=== PATIENT | male | born 1935 | race Caucasian/White ===

== ENCOUNTER 2020-09-09 14:57 | Emergency (ER) | payer MEDICARE, SELFPAY ==
--- NOTE | ~2020-09-09 | XR_ITS ---
EXAMINATION: XR CHEST CLINICAL INFORMATION: Weakness COMPARISON: None TECHNIQUE: 2 views of the chest were obtained. FINDINGS: The cardiac and mediastinal contours are normal. There is significant right apical pleural thickening and calcification. There are irregular calcifications seen in the left lateral upper and mid lung. Appearance is suggestive of pleural calcification. There is volume loss to both upper lobes with superior retraction of the pulmonary [place]. There is a shift of the trachea to the right. There is question of central bronchial wall thickening. The lungs appear well inflated with flattening of the hemidiaphragms suggestive of COPD. There is no pleural effusion or pneumothorax. There are old left rib fractures. Bony structures are otherwise unremarkable. XR/XR chest 2V IMPRESSION: Significant asymmetric right pleural thickening and calcification. Apical mass cannot be excluded. Bilateral upper lobe volume loss. Multiple left midlung calcifications suggestive of pleural calcifications. Possible central bronchial wall thickening. Comparison with old outside chest x-ray is recommended. If no old exams are available for comparison or there is a change in x-ray findings, chest scan should be considered.
--- NOTE | ~2020-09-09 | CT_ITS ---
EXAMINATION: CT CHEST AND CT HEAD WITHOUT CONTRAST. CLINICAL INFORMATION: Abnormal chest x-ray. Altered mental status. COMPARISON: Chest x-ray obtained earlier today at 3:42 PM. TECHNIQUE: 5 mm thin axial and reformatted 2 mm thin sagittal and coronal images of brain were obtained. Subsequently 5 mm thin axial and reformatted 3 mm thin sagittal coronal images of chest were obtained. DLP 810 mGy/cm FINDINGS: Brain: No acute intra-axial, extra-axial bleed, masses or midline shift. There is no acute infarction in evolution. The lom[place] to white matter differentiation is maintained. The lateral ventricles are symmetrical in size and configuration with mild enlargement. There is mild periventricular hypodensity without mass effect. Bone windows reveal no calvarial abnormality. There is no scalp soft tissue abnormality. Bilateral paranasal sinuses and mastoid air cells are well-aerated. CHEST: Lungs are hyperinflated without acute consolidation. There is bilateral apical pleural thickening with a dense masslike right apical pleural anterior calcification and a soft tissue mass posteriorly measuring 36 Hounsfield units. There is no underlying bony erosive changes or lytic lesion involving the adjacent first 4 or 5 ribs. The soft tissue mass measures approximately 4.1 x 2.5 cm on sagittal image 74/18. There is minimal left apical pleural thickening. There are prominent reticular interstitial changes in both lung bases likely chronic scarring. There is diaphragmatic pleural thickening right lower lobe measuring 1.5 x 0.5 cm axial image 56/15.There is dense anterior left pleural calcifications correspond to abnormalities in the left midlung on chest x-ray. There is no pleural effusion or pneumothorax. There is enlarged trachea consistent with emphysema and COPD. There is dependent debris seen within the posterior wall of trachea image 13/15 otherwise the tracheal and bronchial airway is widely patent. No abnormal size mediastinal or hilar lymph nodes or mass seen. The thyroid lobes are symmetrical and normal. The heart size and the great vessels are normal. There are coronary artery, mitral valve calcifications. No pericardial effusion seen. The axilla and chest wall is grossly unremarkable. Imaging through the upper abdomen reveals multiple small calcifications in the liver. Bilateral adrenal glands and visualized kidneys are unremarkable. Bone windows reveal no compression fracture except for mild osteopenia and heterogeneity. CT/CT head/brain wo con IMPRESSION: Diffuse emphysema with right upper lobe apical calcification soft tissue mass, suspicious. There is no underlying bony erosive changes seen on this exam. Recommend PET/CT or CT guided biopsy. Alternatively comparison with old CT or chest x-ray can be performed if available and There is chronic scarring and/or atelectatic changes in both lower lobes. There is no abnormal size mediastinal or hilar lymph nodes seen high limited on this noncontrast exam. Dense left anterior pleural calcification corresponding to the chest x-ray abnormality seen in the left midlung. No pleural effusion.
[2020-09-09 15:03] VITALS: BP 128/61; BP 98/58; PULSE 91; PULSE 95; RESP 18; TEMP 36.7; O2SAT 91; BMI 13.6
--- NOTE | 2020-09-09 15:28 | ECG_ITS ---
Test Reason : DYSPNEA Blood Pressure : / mmHG Vent. Rate : 092 BPM Atrial Rate : 100 BPM P-R Int : 000 ms QRS Dur : 074 ms QT Int : 328 ms P-R-T Axes : 000 143 013 degrees QTc Int : 405 ms Suspect limb lead reversal, interpretation assumes no reversal Atrial fibrillation with premature ventricular or aberrantly conducted complexes Anterolateral infarct , age undetermined Abnormal ECG No previous ECGs available Referred By: Angella Martin Electronically Signed By:DEZ SCOTT MD
--- NOTE | 2020-09-09 15:34 | ED.SOB ---
HPI - SOB/Dyspnea General Chief Complaint: Dyspnea Stated Complaint: weakness, sob Time Seen by Provider: 09/09/20 15:01 Source: patient, family and EMS Mode of arrival: EMS Limitations: no limitations History of Present Illness HPI Narrative: 85-year-old male with a past medical history of AFib on Coumadin, COPD on chronic 5 mg of prednisone followed by Dr. Rueda, obstructive sleep apnea on CPAP, coronary artery disease with old [place], GERD, severe malnutrition here with complaints of generalized weakness and shortness of breath. Per family the patient was admitted to [facility] on 08/21/2020 for shortness of breath, pancreatic mass question of neoplasm, hyponatremia and acute kidney injury. Discharge on 08/24 to [facility] for short-term rehab. This was after the family and patient decided not to pursue further workup for the pancreatic mass. Patient was discharged home yesterday from the alf. Her daughter the patient lives in a two-story home and has his bedroom and bathroom upstairs. He does have 4 steps to get upstairs and she tells me he has been weak and short of breath and unable to move 2-3 steps without nearly falling. She is concerned that he lives alone and he is not safe to be there. Today she tells me that she had a nurse come into the home and he was noted to be very short of breath with any movement, generally weak and his room air saturation was 89%. Per EMS RA 89% on arrival. She also feels like he is more confused from his baseline. MD elicited complaint: shortness of breath and cough Related Data Allergies Allergy/AdvReac Type Severity Reaction Status Date / Time erythromycin base Allergy Unknown unknown Verified 09/09/20 15:28 levofloxacin [From Levaquin] Allergy Unknown unknown Verified 09/09/20 15:28 Review of Systems Review of Systems: Yes all other systems are reviewed and are negative Constitutional: Constitutional: Reports no additional constitutional complaints, Denies body ache(s), Denies chills, Denies fever(s), Denies headache(s) and Reports weakness Eyes: Eyes: Reports no additional eye complaints and Denies change in vision ENT: Reports system reviewed and no additional complaints, except as documented, Denies dizziness, Denies headache(s), Denies nasal congestion, Denies nasal discharge and Denies neck pain Cardiovascular: Cardiovascular: Reports no additional cardiovascular complaints, Denies chest pain, Denies leg edema and Reports dyspnea Respiratory: Respiratory: Reports no additional respiratory complaints, Reports cough and Reports dyspnea Gastrointestinal: Gastrointestinal: Reports no additional gastrointestinal complaints, Denies abdominal pain, Denies diarrhea, Denies nausea and Denies vomiting Genitourinary: Genitourinary: Denies urinary incontinence Musculoskeletal: Musculoskeletal: Reports no additional musculoskeletal complaints, Denies back pain, Denies arthralgias, Denies joint swelling, Denies neck pain, Denies numbness and Denies tingling Integumentary/Breasts: Skin/Breast: Reports system reviewed and no additional complaints, except as docu and Denies rash Neurologic: Reports system reviewed and no additional complaints, except as documented, Denies Abnormal speech present, Denies dizziness, Denies headache(s), Denies numbness, Denies tingling and Reports weakness PMFSH Past Medical History Medical History Afib COPD (chronic obstructive pulmonary disease) Social History Social History Alcohol intake: never Patient Tobacco Use Status: Former Tobacco user Smoked in Last 30 Days: No Use of substances other than those prescribed or required for medical reasons: No Advance Directives: No Advance Directives Information Provided: Yes Physical Exam Vital Signs: Vital Signs: Last Vital Signs Temp 98.1 F 09/09/20 15:03 Pulse 104 H 09/09/20 19:56 Resp 18 09/09/20 19:56 BP 135/61 09/09/20 19:56 Pulse Ox 100 09/09/20 19:56 Body Mass Index 13.6 Const: Other: Very thin appearing General: cooperative and awake Orientation/consciousness: oriented to person and oriented to place Limitations: no limitations HENMT: Head: Yes normal to inspection Ears: hearing grossly normal bilaterally General nose exam: Normal external nose present Face and sinus: Yes normal facial exam Mouth: Normal oral and palatal mucosa present Throat: Yes posterior oropharynx normal, Yes tonsils normal and Yes uvula midline Eyes: General: appearance normal, both eyes and all related structures Pupils: Equal, round and reactive pupils present Neck: Neck: Yes normal visual inspection Chest: Chest palpation & inspection: normal inspection of the chest Resp: Other: Mild expiratory wheezing. Coarse breath sounds in the upper airways Effort & Inspection: normal respiratory effort Cardio: Rate: regular rate Rhythm: regular rhythm Peripheral pulses: Peripheral pulses 2+ throughout GI: Inspection: Yes normal to inspection Palpation (GI): Soft to palpation and nontender Auscultation: normal bowel sounds Back/Spine/Pelvis: Thoracic/Lumbar Spine: thoracic and lumbar spine normal to inspection Skin: General skin exam: no rashes or lesions noted Neuro: General: oriented to person, oriented to place, tone normal, moves all extremities, normal sensation to monofilament and Unable to assess gait Cranial nerves: Yes Equal, round and reactive pupils present, Yes Normal facial strength present and Yes Midline tongue present Cognition (Neuro): normal cognition Speech: No Abnormal speech present Gait exam (Neuro): Unable to assess gait Motor exam (neuro): 5/5 motor strength present throughout Extrem: Other: DTI to bilateral heels. Tender to palpate. No warmth, redness General: Yes normal to inspection, Yes no pedal edema and Yes no calf tenderness Course Course Course Narrative: 85-year-old male here with complaints of generalized weakness, shortness of breath and concern for increasing confusion from baseline from daughter. In the setting of a recent admit to [facility] and transferred to short-term rehab. Discharged yesterday. Daughter is concerned the patient is too weak and short of breath with any movement and is unsafe for him to be home. Of note, recent diagnosis of pancreatic mass. They deferred further evaluation with biopsy and any treatment. Patient very thin-appearing. Room-air saturation 89%. Diminished breath sounds with some coarse upper airway. Will need labs, EKG, chest x-ray, DuoNeb, solumedrol. For concern for confusion although patient is A&Ox2 with no overt neuro deficit will also check Ct head, UA. 1644-chest x-ray shows significant asymmetric right pleural thickening and calcification. Apical mass cannot be excluded. No comparison available. Recommend CT chest. Added on. 1819-labs show mild hyponatremia. Likely secondary dehydration. Will give 500 fluid bolus and reassessed. Patient has some mild hypercarbia which is likely secondary COPD. Imaging pending. 2029-head CT shows no acute finding. CT chest shows diffuse emphysema with a right upper lobe apical calcifications soft tissue mass. There is no underlying bony erosive changes. Recommend follow-up PET/CT or CT guided biopsy. Chronic scarring noted. No abnormal mediastinal or hilar lymph nodes seen. Reviewed findings with family. Given copy of report. They where they need to follow up with further imaging. They have deferred biopsy of pancreatic lesion and further possible treatment with chemo/radiation and we discussed they likely will not due any invasive workup or treatment. Patient ambulated approximately 10-15 steps and had a oxygen saturation of 100%. He was mildly tachypneic with a rate of 22-24. His heart rate did increase to 120 with exertion. However, his orthostatics were not positive. Plan for repeat BMP and troponin. If hyponatremia is improved then will involve physical therapy and case management for placement. If persistent hyponatremia patient will need admission. Family is aware. 2100-Sign out to [employer] pending plan above MDM - SOB/Dyspnea MDM Narrative Medical decision making narrative: uti, ICH vs lesion Differential Diagnosis Differential diagnosis: Likely acute exacerbation of chronic obstructive airways disease, congestive heart failure and pneumonia Medical Records Attestation: I reviewed the patient's medical records. Lab Data Attestation: I reviewed the patient's lab results. Result diagrams: 09/09/20 16:22 09/09/20 16:22 Labs: Lab Results 09/09/20 09/09/20 09/09/20 Range/Units 16:22 16:22 16:22 WBC 7.2 (4.8-10.8) X10*3/uL RBC 3.44 L (4.60-5.80) X10*6/uL Hgb 10.9 L (14.0-18.0) g/dl Hct 33.2 L (42-52) % MCV 96.5 (80-98) fL MCH 31.7 (27.0-33.0) pg MCHC 32.8 (31.0-36.0) g/dl RDW 13.2 (11.0-16.0) % Plt Count 326 (160-400) X10*3/uL MPV 8.3 L (9.4-12.4) fL Immature Gran % (Auto) 0.3 (0.0-0.4) % Neut % (Auto) 83.3 H (45-73) % Lymph % (Auto) 4.3 L (20-40) % Terrell % (Auto) 10.2 (2-11) % Eos % (Auto) 1.5 (0-4) % Baso % (Auto) 0.4 (0-2) % Lymph # (Auto) 0.3 L (1.2-4.9) X10*3/uL Terrell # (Auto) 0.7 (0.1-1.2) X10*3/uL Eos # (Auto) 0.1 (0.0-0.4) X10*3/uL Baso # (Auto) 0.0 (0.0-0.2) X10*3/uL Abs Immat Gran (auto) 0.02 (0.00-0.03) X10*3/uL Absolute Neuts (auto) 6.0 (2.0-8.3) X10*3/uL Absolute Nucleated RBC 0.000 (0.0-0.012) X10*3/uL Nucleated RBC % (auto) 0.0 (0.0-0.2) /100WBC Smear Tech's Comments VERIFIED PT 25.3 H (10.8-13.0) SEC INR 2.1 H (0.9-1.1) Sodium 129 L (135-145) mmol/L Potassium 4.3 (3.3-5.1) mmol/L Chloride 88 L (96-108) mmol/L Carbon Dioxide 36 H (22-29) mmol/L Anion Gap 9 L (12-20) BUN 6 L (9-16) mg/dL Creatinine 0.63 (0.5-1.4) mg/dL Estim Creat Clear Calc 50.9 Estimated GFR > 60 Random Glucose 87 (60-115) mg/dL Lactic Acid (0.5-2.0) mmol/L Calcium 9.0 (8.4-10.2) mg/dL Magnesium 2.2 (1.6-2.6) mg/dL Total Bilirubin 0.7 (0.0-1.0) mg/dL Direct Bilirubin 0.2 (0.0-0.5) mg/dL AST 18 (5-37) U/L ALT 12 (0-40) U/L Alkaline Phosphatase 66 (39-117) U/L Troponin I High Sens (<3.5-35.0) ng/L B-Natriuretic Peptide (<100) pg/mL Total Protein 5.6 L (6.5-8.0) g/dL Albumin 3.7 (3.5-5.0) g/dL Urine Color Urine Appearance Urine pH (5.0-8.0) Ur Specific [place] (1.005-1.025) Urine Protein (NEG-TRACE) MG/DL Urine Glucose (UA) (NEG) MG/DL Urine Ketones (NEG) MG/DL Urine Blood (NEG) Urine Nitrite (NEG) Ur Leukocyte Esterase (NEG) COVID-19 (JEANNE) (Negative) COVID-19 Clin Com 09/09/20 09/09/20 09/09/20 Range/Units 16:22 16:22 17:06 WBC (4.8-10.8) X10*3/uL RBC (4.60-5.80) X10*6/uL Hgb (14.0-18.0) g/dl Hct (42-52) % MCV (80-98) fL MCH (27.0-33.0) pg MCHC (31.0-36.0) g/dl RDW (11.0-16.0) % Plt Count (160-400) X10*3/uL MPV (9.4-12.4) fL Immature Gran % (Auto) (0.0-0.4) % Neut % (Auto) (45-73) % Lymph % (Auto) (20-40) % Terrell % (Auto) (2-11) % Eos % (Auto) (0-4) % Baso % (Auto) (0-2) % Lymph # (Auto) (1.2-4.9) X10*3/uL [place]rell # (Auto) (0.1-1.2) X10*3/uL Eos # (Auto) (0.0-0.4) X10*3/uL Baso # (Auto) (0.0-0.2) X10*3/uL Abs Immat Gran (auto) (0.00-0.03) X10*3/uL Absolute Neuts (auto) (2.0-8.3) X10*3/uL Absolute Nucleated RBC (0.0-0.012) X10*3/uL Nucleated RBC % (auto) (0.0-0.2) /100WBC Smear Tech's Comments PT (10.8-13.0) SEC INR (0.9-1.1) Sodium (135-145) mmol/L Potassium (3.3-5.1) mmol/L Chloride (96-108) mmol/L Carbon Dioxide (22-29) mmol/L Anion Gap (12-20) BUN (9-16) mg/dL Creatinine (0.5-1.4) mg/dL Estim Creat Clear Calc Estimated GFR Random Glucose (60-115) mg/dL Lactic Acid 0.5 (0.5-2.0) mmol/L Calcium (8.4-10.2) mg/dL Magnesium (1.6-2.6) mg/dL Total Bilirubin (0.0-1.0) mg/dL Direct Bilirubin (0.0-0.5) mg/dL AST (5-37) U/L ALT (0-40) U/L Alkaline Phosphatase (39-117) U/L Troponin I High Sens 5.7 (<3.5-35.0) ng/L B-Natriuretic Peptide 89 (<100) pg/mL Total Protein (6.5-8.0) g/dL Albumin (3.5-5.0) g/dL Urine Color Urine Appearance Urine pH (5.0-8.0) Ur Specific [place] (1.005-1.025) Urine Protein (NEG-TRACE) MG/DL Urine Glucose (UA) (NEG) MG/DL Urine Ketones (NEG) MG/DL Urine Blood (NEG) Urine Nitrite (NEG) Ur Leukocyte Esterase (NEG) COVID-19 (JEANNE) Negative (Negative) COVID-19 Clin Com See Note 09/09/20 Range/Units 17:06 WBC (4.8-10.8) X10*3/uL RBC (4.60-5.80) X10*6/uL Hgb (14.0-18.0) g/dl Hct (42-52) % MCV (80-98) fL MCH (27.0-33.0) pg MCHC (31.0-36.0) g/dl RDW (11.0-16.0) % Plt Count (160-400) X10*3/uL MPV (9.4-12.4) fL Immature Gran % (Auto) (0.0-0.4) % Neut % (Auto) (45-73) % Lymph % (Auto) (20-40) % Terrell % (Auto) (2-11) % Eos % (Auto) (0-4) % Baso % (Auto) (0-2) % Lymph # (Auto) (1.2-4.9) X10*3/uL [place] # (Auto) (0.1-1.2) X10*3/uL Eos # (Auto) (0.0-0.4) X10*3/uL Baso # (Auto) (0.0-0.2) X10*3/uL Abs Immat Gran (auto) (0.00-0.03) X10*3/uL Absolute Neuts (auto) (2.0-8.3) X10*3/uL Absolute Nucleated RBC (0.0-0.012) X10*3/uL Nucleated RBC % (auto) (0.0-0.2) /100WBC Smear Tech's Comments PT (10.8-13.0) SEC INR (0.9-1.1) Sodium (135-145) mmol/L Potassium (3.3-5.1) mmol/L Chloride (96-108) mmol/L Carbon Dioxide (22-29) mmol/L Anion Gap (12-20) BUN (9-16) mg/dL Creatinine (0.5-1.4) mg/dL Estim Creat Clear Calc Estimated GFR Random Glucose (60-115) mg/dL Lactic Acid (0.5-2.0) mmol/L Calcium (8.4-10.2) mg/dL Magnesium (1.6-2.6) mg/dL Total Bilirubin (0.0-1.0) mg/dL Direct Bilirubin (0.0-0.5) mg/dL AST (5-37) U/L ALT (0-40) U/L Alkaline Phosphatase (39-117) U/L Troponin I High Sens (<3.5-35.0) ng/L B-Natriuretic Peptide (<100) pg/mL Total Protein (6.5-8.0) g/dL Albumin (3.5-5.0) g/dL Urine Color YELLOW Urine Appearance CLEAR Urine pH 6.0 (5.0-8.0) Ur Specific [place] 1.015 (1.005-1.025) Urine Protein NEG (NEG-TRACE) MG/DL Urine Glucose (UA) NEG (NEG) MG/DL Urine Ketones NEG (NEG) MG/DL Urine Blood NEG (NEG) Urine Nitrite NEG (NEG) Ur Leukocyte Esterase NEG (NEG) COVID-19 (JEANNE) (Negative) COVID-19 Clin Com Imaging Data Chest x-ray: Attestation: I personally reviewed and interpreted this imaging study as follows: Radiologist's impression: IMPRESSION: Significant asymmetric right pleural thickening and calcification. Apical mass cannot be excluded. Bilateral upper lobe volume loss. Multiple left midlung calcifications suggestive of pleural calcifications. Possible central bronchial wall thickening. Comparison with old outside chest x-ray is recommended. If no old exams are available for comparison or there is a change in x-ray findings, chest scan should be considered. ECG Data Attestation: I personally reviewed and interpreted this ECG as follows: ECG interpretation date: 09/09/20 ECG interpretation time: 16:38 Interpretation: afib with rate 92, normal qrs, normal qtc Discharge Plan Discharge Clinical Impression: Weakness
[2020-09-09] MEDS: Albuterol/Iprat 2.5/0.5MG 3 ML AMPUL.NEB INHALE (16:06)
[2020-09-09 16:08] VITALS: PULSE 95; O2SAT 91
[2020-09-09] MEDS: methylPREDNISolone Sod Succ 125 MG/2 ML VIAL IVPUSH (16:30)
[2020-09-09 16:31] LABS: Basophils Percent Auto 0.4 % (0-2); Eosinophils Absolute Auto 0.1 X10*3/uL (0.0-0.4); Eosinophils Percent Auto 1.5 % (0-4); Hematocrit 33.2 % (42-52); Hemoglobin 10.9 g/dl (14.0-18.0); Imm Gran Abs Auto 0.02 X10*3/uL (0.00-0.03); Imm Gran Pct Auto 0.3 % (0.0-0.4); Lymphocytes Absolute Auto 0.3 X10*3/uL (1.2-4.9); Lymphocytes Percent Auto 4.3 % (20-40); MANUAL DIFF FLAG SCAN; Mean Corpuscular HGB Conc 32.8 g/dl (31.0-36.0); Mean Corpuscular Hemoglobin 31.7 pg (27.0-33.0); Mean Corpuscular Volume 96.5 fL (80-98); Mean Platelet Volume 8.3 fL (9.4-12.4); Monocytes Absolute Auto 0.7 X10*3/uL (0.1-1.2); Monocytes Percent Auto 10.2 % (2-11); Neutrophils Percent Auto 83.3 % (45-73); Platelet Count 326 X10*3/uL (160-400); Red Blood Count 3.44 X10*6/uL (4.60-5.80); Red Cell Distribution Width 13.2 % (11.0-16.0); SCAN SMEAR FLAG 1; White Blood Count 7.2 X10*3/uL (4.8-10.8)
[2020-09-09 16:44] LABS: INTERNATIONAL NORM RATIO 2.1 (0.9-1.1); Prothrombin Time 25.3 SEC (10.8-13.0)
[2020-09-09 16:57] LABS: Lactic Acid 0.5 mmol/L (0.5-2.0)
[2020-09-09 17:00] LABS: SLIDE REVIEW VERIFIED
[2020-09-09 17:03] LABS: B Type Natriuretic Peptide 89 pg/mL (<100); Troponin-I High Sensitivity 5.7 ng/L (<3.5-35.0)
[2020-09-09 17:31] LABS: Alanine Aminotransferase 12 U/L (0-40); Albumin Level 3.7 g/dL (3.5-5.0); Alkaline Phosphatase 66 U/L (39-117); Anion Gap 9 (12-20); Aspartate Amino Transferase 18 U/L (5-37); Bilirubin Direct 0.2 mg/dL (0.0-0.5); Bilirubin Total 0.7 mg/dL (0.0-1.0); Blood Urea Nitrogen 6 mg/dL (9-16); Carbon Dioxide 36 mmol/L (22-29); Chloride 88 mmol/L (96-108); Creatinine Clr Calc Pharmacy 50.9; Estimated Glomerular Filt Rate > 60; Glucose Random 87 mg/dL (60-115); Magnesium 2.2 mg/dL (1.6-2.6); Potassium 4.3 mmol/L (3.3-5.1); Sodium 129 mmol/L (135-145); Total Protein 5.6 g/dL (6.5-8.0)
[2020-09-09 17:33] LABS: Glucose Urine UA NEG (NEG); Leukocyte Esterase Urine NEG (NEG); Nitrite Urine NEG (NEG); Specific Gravity - Urine 1.015 (1.005-1.025); Urine Blood NEG (NEG); Urine Ketones NEG (NEG); Urine Protein NEG (NEG-TRACE)
[2020-09-09 17:35] LABS: Appearance Urine CLEAR; Color Urine YELLOW
[2020-09-09 17:57] LABS: COVID-19 Test Negative (Negative)
[2020-09-09 19:55] VITALS: BP 130/64; PULSE 95
[2020-09-09 19:56] VITALS: BP 124/53; BP 135/61; PULSE 101; PULSE 104; RESP 18; O2SAT 100
[2020-09-09 21:32] LABS: Anion Gap 12 (12-20); Blood Urea Nitrogen 8 mg/dL (9-16); Calcium 8.8 mg/dL (8.4-10.2); Carbon Dioxide 33 mmol/L (22-29); Chloride 90 mmol/L (96-108); Creatinine Clr Calc Pharmacy 45.1; Estimated Glomerular Filt Rate > 60; Glucose Random 296 mg/dL (60-115); Potassium 4.8 mmol/L (3.3-5.1); Sodium 130 mmol/L (135-145)
[2020-09-09 21:37] LABS: Troponin-I High Sensitivity 4.4 ng/L (<3.5-35.0)
[2020-09-09 22:00] VITALS: BP 105/50; PULSE 98; RESP 20
--- NOTE | 2020-09-09 22:52 | MHC.CM.ED ---
CM met with pt at request of Angella BARKER and pt daughter/HCP Liudmila Boston-[phone] cell. Pt was at [facility] for STR and was d/c to home. D/C paperwork from SNF stated that pt was independent. Daughter states she appealed her father's discharge and it was denied twice. Liudmila tells me her father is very weak, has pancreatic cancer, COPD, FTT,a-fib CAD and GERD. She states he is very forgetful and cannot remember how to complete tasks he has been doing for years, i.e. using his nebulizer machine. She tells me he forgets to eat. Liudmila had an RN from [facility] come in to evaluate her father and stated that he nearly fell and the nurse did not feel he was safe at home. STEPH came in to evaluate her father and felt he needed to come to the ED and called the ambulance to transport him to [facility]. Pt is alert and orientated x3, but easily forgets our conversation and needed to be reminded several times what the plan of care was. Pt and family have decided to forego any cancer treatment. Pt lives alone and must navigate 4 stairs to go to the bathroom. Pt tells CM he has difficulty with the stairs and walking short distances, but wants to go home. Pt has a cane and tells CM he forgets to use it. Pt does not have any services at home, had tried meals on wheels, but then would not remember to eat them. Pt was in the . Will check in am with [facility] to learn if pt is vet [facility]. Daughter does not feel pt is safe at home. Pt is frail and cachectic looking. Skin color sallow. Very soft spoken. Pt is unable to use urinal independently; cannot pull down pants without assistance. Pt will remain in the ED overnight for PT evaluation in the am. Pt would like to go home, but understands he is probably not safe to do so alone. Daughter is agreeable to STR again if recommended by PT and insurance approves it. Spoke with daughter at length about having 24/7 care for her father to remain home alone. T/W does not feel daughter understands that this type of care is usually not covered by insurance. Daughter states the insurance company will pay for home care. After much discussion, MARSHALL told daughter we could refer to financial counseling tomorrow. Plan of care at this point is to obtain the PT evaluation and call the daughter tomorrow. She will be in about 12:30. CM explained that we would take this one step at a time. Pt and daughter agreeable. CM business cards given. CM will follow for d/c needs.
[2020-09-09 23:09] VITALS: BP 113/39; PULSE 105; RESP 20
[2020-09-10] VITALS (7 sets, daily range): BP systolic 120–139; BP diastolic 67–76; PULSE 97–106; RESP 16–31; TEMP 36.4–36.6; O2SAT 95–100
--- NOTE | 2020-09-10 06:21 | PC.NURSE ---
pt is sleeping needs at bedside, no s/s of distress, pt is aox3 and makes good conversation with staff.
[2020-09-10] MEDS: 0.9 % Sodium Chloride 1,000 ML 75 ML IVCONT ×2 (08:58→20:59)
--- NOTE | 2020-09-10 12:07 | MHC.CM.ED ---
Patient remains in ER. Physical therapy eval completed. Short term rehab is recomended. Spoke with patient's daughter/HCP, Liudmila via telephone at [phone]. List of facilities contracted with patient's insurance provided via email from [employer]. Liudmila will be in the ER around 1230pm. Spoke with Kim at the [facility]. Patient is not registered in the [place] system. So, patient has either registered in a different district or will need to go online at [facility] to register patient with the [facility]. This will be explained to Liudmila when she comes to the ER. Continue to monitor for d/c needs.
--- NOTE | 2020-09-10 13:41 | MHC.CM.ED ---
Received telephone call from patient's daughter, Mnoica. She is requesting referrals to [facility], [facility] and [facility]. Referrals made via [employer]. Liaisons for all 3 facilities have been asked to contact Monica about services they would be able to offer the patient. Continue to monitor for d/c needs.
--- NOTE | 2020-09-10 15:50 | MHC.CM.ED ---
Spoke with Savita at [facility]. They are reaching out to patient's daughter but will need a CT PASRR completed. Form sent by Savita. Completed and faxed back. [facility] will need insurance auth before they can accept pateint. Continue to monitor for d/c needs.
--- NOTE | 2020-09-10 16:46 | MHC.CM.ED ---
[facility] has offered a bed, as well as [place]. Pt and daughter have accepted a bed at [facility]. Daughter and pt aware that we are now waiting for insurance authorization and PASSR exemption. They are aware that this may not happen until tomorrow. Daughter asking for time, CM let her know that all we can do is wait for insurance auth. Also let her know that sometimes it takes 1-2 days. Spoke with Matt JARA regarding hospital bed for pt. Pt tells CM he likes it here and would like to stay at [facility] [place]. CM responded we would love to have him, but unfortunately,we cannot keep him. CM will follow for D/C needs.
--- NOTE | 2020-09-10 17:00 | PC.NURSE ---
Pt alert, responsive. Offers no complaints at this time. Respirations even/unlabored bilaterally. Will continue to monitor.
--- NOTE | 2020-09-10 18:52 | PC.NURSE ---
Called pharmacy to perform med rec for patient.
--- NOTE | 2020-09-10 19:25 | PC.NURSE ---
REPORT TAKEN FROM RELL Cardoso RN, FIRST CONTACT WITH PT. SITTING UP IN BED EATING, SKIN PWD RESPIRATIONS EVEN UNLABORED, CONVERSING WITH PHARMACIST REGARDING MED RECONCILIATION. DAUGHTER AT BEDSIDE. PT OFFERS NO COMPLAINTS AT THIS TIME. CM BEDSEARCH CONTINUES.
--- NOTE | 2020-09-10 20:23 | PHA.MEDREC ---
Pharmacy Consult ? Medication Reconciliation Pharmacy has completed the medication reconciliation.
--- NOTE | 2020-09-10 22:47 | PC.NURSE ---
THIS RN SPOKE WITH PT DAUGHTER WHO CALLED CONCERNED ABOUT MEDICATION RECONCILIATION. RN DISCUSSED MEDICATIONS THAT WERE INPUT BY PHARMACY (PHARMACY PREVIOUSLY INTERVIEWED DAUGHTER AT PT BEDSIDE TO OBTAIN MEDICATION LIST EARLIER [facility]ONCE[facility]) PT REPORTEDLY DID NOT RECEIVE WARFARIN DOSE YESTERDAY OR TODAY. THIS RN NOTIFIED TATIANA BARKER WHO STATED HE WILL ORDER INR FOR AM AND RESUME DOSING BASED OFF OF THOSE RESULTS.
--- NOTE | 2020-09-11 03:11 | PC.NURSE ---
Addendum entered by Lois Pham 09/11/20 03:13: CASE MANAGMENT PLACMENT PENDING INSURANCE [facility]. Original Note: PT RESTING IN BED EYES CLOSED SKIN PWD RESPIRATIONS EVEN UNLABORED. NO DISTRESS NOTED. CASE MANAGEMENT BED SEARCH CONTINUES.
[2020-09-11 06:36] VITALS: BP 131/56; PULSE 88; RESP 20; TEMP 36.6; O2SAT 97
[2020-09-11 08:35] LABS: INTERNATIONAL NORM RATIO 2.1 (0.9-1.1); Prothrombin Time 24.7 SEC (10.8-13.0)
[2020-09-11] MEDS: Albuterol Sulfate (0.083%) 2.5 MG/3 ML VIAL.NEB INHALE ×2 (09:16→14:11)
[2020-09-11 09:17] VITALS: PULSE 93; O2SAT 90
[2020-09-11] MEDS: Sodium Chloride Tab 1 GM TABLET PO (09:36)
[2020-09-11] MEDS: Folic Acid 1 MG TABLET PO (09:36)
[2020-09-11] MEDS: predniSONE 5 MG TABLET PO (09:37)
[2020-09-11] MEDS: Thiamine HCL 100 MG TABLET PO (09:37)
[2020-09-11 09:41] VITALS: PULSE 101
[2020-09-11] MEDS: Digoxin 0.125 MG TABLET PO (09:41)
[2020-09-11] MEDS: 0.9 % Sodium Chloride 1,000 ML 75 ML IVCONT (09:47)
[2020-09-11 10:44] VITALS: PULSE 91
--- NOTE | 2020-09-11 12:35 | MHC.CM.ED ---
Patient remains in . [facility] received CT PASRR. Just waiting for insurance auth. Continue to monitor for d/c needs.
[2020-09-11 14:11] VITALS: PULSE 103; O2SAT 91
[2020-09-11 14:18] VITALS: PULSE 111; RESP 24
--- NOTE | 2020-09-11 15:16 | MHC.CM.ED ---
Insurance auth has been obtained from [facility]. Patient can leave at 4pm. [facility] booked. Med nec with chart. Patient, daughter Zoey Anderson and Caroline JARA aware. Continue to monitor for d/c needs.
--- NOTE | 2020-09-11 15:22 | PC.NURSE ---
attempted to call SNF being transported to, no answer from floor to give report.
== END 2020-09-11 16:34 | disposition skilled nursing facility (03) ==
PROVIDERS: Nurse Practitioner Family; Physician Assistant; Emergency Provider Emergency Medicine; PCP Physician Assistant Medical
DX: R53.1 Weakness (principal); J44.1 Chronic obstructive pulmonary disease with (acute) exacerbation; Z91.81 History of falling; Z20.822 Contact with and (suspected) exposure to COVID-19; I48.91 Unspecified atrial fibrillation; Z85.07 Personal history of malignant neoplasm of pancreas
CPT/HCPCS: 36415; 70450; 71046; 71250; 80048; 80076; 81003; 83605; 83735; 83880; 84484; 85025; 85610; 87040; 87635; 93005; 94640; 96360; 96361; 96374; 97162; 99285; J2930